=== PATIENT | female | born 1990 | race Caucasian/White ===

== ENCOUNTER 2016-10-24 21:39 | Emergency (ER) | payer SELFPAY ==
[~2016-10-24] VITALS: Ht 162.6 cm; Wt 63.0 kg
[~2016-10-24 21:39] MED LIST: ACET500C5 PO; CEPH-443 PO
[2016-10-24 22:06] VITALS: Ht 162.6 cm; Wt 63.0 kg
== END 2016-10-25 02:08 | disposition left against medical advice (07) ==
LOC: FTE 21:39
DX: Z53.21 Procedure and treatment not carried out due to patient leaving prior to being seen by health care provider (principal)

== ENCOUNTER 2017-06-16 14:48 | Emergency (ER) | payer MEDICAID ==
[~2017-06-16] VITALS: Ht 162.6 cm; Wt 65.0 kg
[2017-06-16 14:50] VITALS: Ht 162.6 cm; Wt 65.0 kg
--- NOTE | 2017-06-16 16:43 | ERD ---
ER Documentation Chief Complaint Chief Complaint left ankle pain s/p fall 3 days ago HPI 26-year-old female comes in with a left lateral ankle and foot injury after going down the stairs and she fell 3 days ago. She describes diffuse achy pain that goes from the left lateral ankle to her, moderate, worse with weightbearing better when there is no pressure placed on it. She has tried taking ibuprofen, but the swelling has not gotten better. ROS All systems reviewed and are negative except as per history of present illness. Medications Home Meds Active Scripts Ibuprofen* (Motrin*) 600 Mg Tab, 600 MG PO Q6, #30 TAB Prov:BYRON MCLEAN PA-C 06/16/17 Acetaminophen* (Tylophen*) 500 Mg Capsule, 1 CAP PO Q6H Y for PAIN AND OR ELEVATED TEMP, #20 CAP Prov:TALA BALLARD C[employer] TRANSITION COORDINATOR 09/26/15 Cephalexin* (Keflex*) 500 Mg Capsule, 500 MG PO QID for 7 Days, CAP Prov:TALA BALLARD CARE TRANSITION COORDINATOR 09/26/15 Reported Medications [none] Unknown Strength No Conflict Check 09/26/15 Allergies Allergies: Coded Allergies: No Known Allergy (Verified , 12/17/14) PMhx/Soc History of Surgery: Yes ( section) Anesthesia Reaction: No Hx Neurological Disorder: No Hx Respiratory Disorders: No Hx Cardiac Disorders: No Hx Psychiatric Problems: No Hx Miscellaneous Medical Probl: No Hx Alcohol Use: No Hx Substance Use: No Hx Tobacco Use: No Physical Exam Vitals Vital Signs Date Time Temp Pulse Resp B/P Pulse Ox O2 Delivery O2 Flow Rate FiO2 06/16/17 14:50 98.6 95 18 114/67 98 Physical Exam General: Well-developed, well-nourished. The patient appears in no acute distress. HEENT: Head is normocephalic, atraumatic. No scleral icterus. Neck: Supple. Nontender. Lungs: Clear to auscultation. Normal air movement. Heart: Regular rate and rhythm. S1 and S2 are normal. No murmurs, gallops, or rubs. Abdomen: Nondistended. Extremities: Left lateral ankle swelling over the lateral malleolus that extends to the lateral foot. There is soft tissue swelling. Compartments are soft. DP pulses 2+ bilaterally, Achilles is intact. Neurologic: Alert and oriented 3. No focal deficits. Normal speech and gait. Skin: Normal turgor. No rash or lesions. Results 24 hrs Current Medications Medications (Trade) Dose Ordered Sig/Mikhail Route PRN Reason Start Time Stop Time Status Last Admin Dose Admin Acetaminophen/ Hydrocodone Bitart (Jbphh (5/325)) 1 tab ONCE ONCE PO 06/16/17 17:00 06/16/17 17:01 DC 06/16/17 17:17 DIAGNOSTIC IMAGING REPORT Patient: LUIS BUTLER : 1990 Age: 26 Sex: F MR #: [id number] DOS: 06/16/175 Ordering MD: BYRON MCLEAN PA-C Location: [facility] Room/Bed: PROCEDURE: XR Ankle. CLINICAL INDICATION: Lateral ankle pain after trauma. TECHNIQUE: 3 views of the left ankle were performed. COMPARISON: None available. FINDINGS: There is no acute fracture, dislocation, or other osteoarticular abnormality. The alignment is normal and the ankle mortise is intact. There is mild pararticular soft tissue swelling, most pronounced over the lateral malleolus. IMPRESSION: 1. Mild pararticular soft tissue swelling, most pronounced over the lateral malleolus, with no underlying acute fracture or dislocation. RPTAT: HLBP .Yg Wellington MD, MD Date Time Electronically viewed and signed by .Yg [place] MD, on 06/16/2017 17:35 .P/ CC: BYRON MCLEAN PA-C Radiology Main Line: [phone] DIAGNOSTIC IMAGING REPORT Patient: LUIS BUTLER : 1990 Age: 26 Sex: F MR #: [id number] DOS: 06/16/175 Ordering MD: BYRON MCLEAN PA-C Location: [facility] Room/Bed: PROCEDURE: XR Foot. CLINICAL INDICATION: Pain at the lateral margin of the left foot after trauma. TECHNIQUE: Three views of the left foot are available for review. COMPARISON: None available FINDINGS: There is no acute fracture, dislocation, or other osteoarticular abnormality. The alignment is normal and the soft tissues are unremarkable. The osseous mineralization is within normal limits. IMPRESSION: 1. Unremarkable plain film evaluation of the left foot. RPTAT: HLBP .Yg Wellington MD, MD Date Time Electronically viewed and signed by .Yg Wellington MD, MD on 06/16/2017 17:36 .P/ CC: BYRON MCLEAN PA-C Procedures/MDM ED course: Patient was given Jbphh for pain. patient's left foot and ankle were wrapped in Mamadou bandage and she was given crutches with crutch training. Splint Assessment: Neurovascularly intact post splint placement with good fit. MDM: 26-year-old female comes to emergency room left foot and left ankle sprain , no evidence of fracture, tendon rupture. Patient's left ankle and foot were wrapped in Mamadou bandage and she was given crutches to be used as needed. Departure Diagnosis: Primary Impression: Ankle injury Condition: Good BYRON MCLEAN PA-C Jun 16, 2017 16:43
[2017-06-16] MEDS ORDERED: HYDROCODONE/APAP (5/325) TAB PO ONE (17:00)
--- NOTE | 2017-06-16 17:36 | RADRPT ---
PROCEDURE: XR Ankle. CLINICAL INDICATION: Lateral ankle pain after trauma. TECHNIQUE: 3 views of the left ankle were performed. COMPARISON: None available. FINDINGS: There is no acute fracture, dislocation, or other osteoarticular abnormality. The alignm ent is normal and the ankle mortise is intact. There is mild pararticular soft tissue swelling, mos t pronounced over the lateral malleolus. IMPRESSION: 1. Mild pararticular soft tissue swelling, most pronounced over the lateral malleolus, with no unde rlying acute fracture or dislocation. RPTAT: HLBP .Yg Wellington MD, Date Time Electronically viewed and signed by .Yg Wellington MD, on 06/16/2017 17:35 .P/
--- NOTE | 2017-06-16 17:37 | RADRPT ---
PROCEDURE: XR Foot. CLINICAL INDICATION: Pain at the lateral margin of the left foot after trauma. TECHNIQUE: Three views of the left foot are available for review. COMPARISON: None available FINDINGS: There is no acute fracture, dislocation, or other osteoarticular abnormality. The alignme nt is normal and the soft tissues are unremarkable. The osseous mineralization is within normal limi ts. IMPRESSION: 1. Unremarkable plain film evaluation of the left foot. RPTAT: HLBP .Yg Wellington MD, MD Date Time Electronically viewed and signed by .Yg Wellington MD, on 06/16/2017 17:36 .P/
[2017-06-16] MEDS ORDERED: IBUP-1542 PO (17:54)
== END 2017-06-16 18:14 | disposition home or self-care (01) ==
LOC: FTE 14:48
DX: S99.912A Unspecified injury of left ankle, initial encounter (principal); W10.9XXA Fall (on) (from) unspecified stairs and steps, initial encounter; Y92.9 Unspecified place or not applicable
CPT/HCPCS: 73610; 73630; Z7502; Z7610

== ENCOUNTER 2018-07-13 13:55 | Inpatient (IN) | END 2018-07-16 14:00 | disposition home or self-care (01) | DRG 788 ==